=== PATIENT | male | born 1965 | race Caucasian/White ===

== ENCOUNTER 2020-02-10 14:55 | Outpatient (CLI) | payer OTHER ==
--- NOTE | 2020-02-10 15:55 | RAD ---
RADIOGRAPH CHEST AND LEFT RIBS 4 views: DATE: 02/10/2020 HISTORY: 54-year-old male with left chest wall pain FINDINGS: The visualized lung coreas are clear. The cardiomediastinal silhouette and hilar shadows are normal. The lateral costophrenic angles are sharp. There is no evidence of destructive osseous lesion or fracture involving left ribs or left clavicle. There are large osteophytes at the inferior aspect of left humeral head.. There is no pneumothorax. 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 2) otherwise negative
== END 2020-02-10 14:56 | disposition home or self-care (01) ==
LOC: BICRAD 14:55
PROVIDERS: ATTEND Family Medicine
DX: R07.89 Other chest pain (principal); M19.012 Primary osteoarthritis, left shoulder

== ENCOUNTER 2020-03-02 13:59 | Outpatient (CLI) | payer OTHER ==
--- NOTE | 2020-03-02 15:26 | MRI ---
MR CERVICAL SPINE WITHOUT CONTRAST INDICATION: 55-year-old male with history of bilateral shooting arm pain and burning sensations withi n both hands for the last 2 years. Patient also has numbness in the cervical spinal region that extends in between shoulder blades. The symptoms have progressed over the last 30 days. TECHNIQUE: Multiplanar multisequence MR images were obtained of the cervical spine without contrast. COMPARISON: Cervical spinal MRI dated May 08, 2014. FINDINGS: Posterior fossa: Within normal limits. Bone marrow signal intensity: Normal Spinal alignment: Normal. Craniocervical junction: Normal appearing. Prevertebral and perivertebral soft tissues: There is a mucus retention cyst within the inferior aspe ct of the left maxillary sinus. Prevertebral and paravertebral soft tissues appear within normal limits. Vertebral levels: C2-C3: There is severe right facet joint osteoarthritic change which is progressed from the prior exa m. There is mild left facet joint degenerative change. There is mild uncovertebral hypertrophy. Constellation of findings induces moderate right neural foraminal narrowing which appears worse from the prior exam. C3-4: There is a broad-based, asymmetric to the right disc bulge with worsening facet joint degenerat dona change inducing stable severe right and moderate left neural foraminal narrowing. There is mild central canal narrowing due to the broad-based bulge that is mildly worsened from the prior exam. C4-5: There is a broad-based bulge that is stable inducing mild ventral effacement of subarachnoid s pace. There is moderate facet joint degenerative change. There is no appreciable neural foraminal narrowing. C5-C6: There is a broad-based disc osteophyte complex with uncovertebral hypertrophy inducing mild ce ntral canal narrowing and stable moderate bilateral neural foraminal narrowing C6-C7: There is a broad-based disc bulge inducing mild central canal narrowing with mild ventral effa cement of the subarachnoid space with contact of the ventral spinal cord. No cord signal abnormality is evident. There is uncovertebral hypertrophy and facet joint degenerative change greate r on the left inducing moderate to severe left and mild right neural foraminal narrowing that appears slightly worse than the prior exam. C7-T1: No appreciable central canal or neuroforaminal narrowing. IMPRESSION: 1. Worsening multilevel spondylosis of the cervical spine with multilevel neural foraminal narrowing and central canal narrowing as detailed above. 2. Worsening moderate right neural foraminal narrowing at C2-C3. 3. Stable severe right and moderate left neural foraminal narrowing at C3-4. Worsening mild central c anal narrowing at C3-4 due to slight increased prominence of the broad-based disc bulge. 4. Stable moderate bilateral neural foraminal narrowing mild central canal narrowing at C5-6. 5. Worsening moderate to severe left and mild right neural foraminal narrowing at C6-7. Stable mild c entral canal narrowing at C6-7 due to a broad-based disc bulge.
--- NOTE | 2020-03-02 15:34 | RAD ---
EXAM: XR Cerv Sp Ap Lat STANDARD DATE: 03/02/2020 3:10 PM INDICATION: Bilateral shooting arm pain and burning sensations within both hands COMPARISON: Cervical spine radiograph dated 05/04/2017 FINDING: There is advanced disc degenerative disease at C5-6 and C6-7. There is prominent facet oste oarthrosis at C7-T1. There is very mild anterior translation of C7 on T1. With flexion, the anterolisthesis of C7 on T1 appears stable. The anterolisthesis of C7 on T1 appears stable on extensi on. IMPRESSION:Moderate cervical spondylosis with no abnormal translational motion. Mild anterior transla tion of C7 on T1 is likely degenerative.
== END 2020-03-02 14:00 | disposition home or self-care (01) ==
LOC: TBSIIMAG 13:59
PROVIDERS: ATTEND Neurological Surgery
DX: M50.123 Cervical disc disorder at C6-C7 level with radiculopathy (principal); M47.22 Other spondylosis with radiculopathy, cervical region; M48.02 Spinal stenosis, cervical region
CPT/HCPCS: 72040; 72141